=== PATIENT | male | born 1960 | race Caucasian/White ===

== ENCOUNTER 2020-08-02 02:30 | Inpatient (IN) | payer OTHER ==
[~2020-08-02] VITALS: Ht 172.7 cm; Wt 108.4 kg
[~2020-08-02 02:30] MED LIST: KEFLEX500 MG PO; MEDROL DOSEPAK4 MG PO; Motrin,Rufen800 MG PO
[2020-08-02 02:40] VITALS: BP 98/74
[2020-08-02 03:10] LABS: BASO % 0.2 % (0.0-1.0); EOS # 0.1 10*3/uL (0.0-0.4); EOS % 1.3 % (1.0-4.0); HEMATOCRIT 42.5 % (42.0-52.0); LYMPH # 2.5 10*3/uL (1.3-4.4); LYMPH % 23.6 % (27.0-41.0); MEAN CELL VOLUME 89.1 fl (80.0-94.0); MEAN CORPUSCULAR HGB CONC 33.6 g/dl (33.0-37.0); MEAN PLATELET VOLUME 9.2 fl (9.6-12.3); MONO # 0.9 10*3/uL (0.1-1.0); MONO % 8.1 % (3.0-9.0); NEUT % 66.4 % (47.0-73.0); PLATELET COUNT AUTOMATED 148 10*3/uL (130-400); RED BLOOD COUNT 4.77 10*6/uL (4.50-5.90); RED CELL DISTRI WIDTH 12.4 % (0-14.5); WHITE BLOOD COUNT 10.6 10*3/uL (4.8-10.8)
[2020-08-02 03:29] LABS: ALBUMIN 3.4 gm/dl (3.1-4.5); ALKALINE PHOSPHATASE 68 U/L (45-117); BUN 10 mg/dl (7-24); CHLORIDE 105 mmol/L (98-107); CREATININE 1.03 mg/dL (0.70-1.30); POTASSIUM 3.4 mmol/L (3.5-5.1); SGOT/AST 27 IU/L (3-35); SGPT/ALT 32 U/L (12-78); SODIUM 138 mmol/L (136-145); TOTAL PROTEIN 7.6 gm/dL (6.4-8.2)
[2020-08-02 06:02] LABS: THYROID STIM HORMONE (HS) 3.1 uIU/ml (0.358-4.75)
[2020-08-02 06:49] LABS: FERRITIN 373.2 ng/mL (22.0-322.0); VITAMIN D, 25-HYDROXY 18.7 ng/mL (30-100)
[2020-08-02 10:13] LABS: ABG BASE EXCESS -0.3 mmol/L (-2.0-2.0); ARTERIAL BLOOD GAS PH 7.417 (7.35-7.45)
[2020-08-02 10:45] VITALS: BP 108/86
[2020-08-02 12:00] VITALS: BP 109/84
[2020-08-02 16:00] VITALS: BP 107/78
== END 2020-08-03 03:56 | disposition expired | DRG 871 ==
LOC: ED → EDHOLD 04:35 → 4E 08:43 → ICCU 20:33 → 4E 08-03 03:56
PROVIDERS: Internal Medicine; Internal Medicine Critical Care Medicine; Student in an Organized Health Care Education/Training Program; ADMIT Emergency Medicine; ATTEND Emergency Medicine
PROC: 5A12012 Performance of Cardiac Output, Single, Manual (ICD-10-PCS; principal; 2020-08-02)
PROC: 0BH17EZ Insertion of Endotracheal Airway into Trachea, Via Natural or Artificial Opening (ICD-10-PCS; 2020-08-02)
PROC: 5A0935A Assistance with Respiratory Ventilation, Less than 24 Consecutive Hours, High Flow/Velocity Cannula (ICD-10-PCS; 2020-08-02)
PROC: XW033E5 Introduction of Remdesivir Anti-infective into Peripheral Vein, Percutaneous Approach, New Technology Group 5 (ICD-10-PCS; 2020-08-02)
DX: A41.89 Other specified sepsis (principal); I21.4 Non-ST elevation (NSTEMI) myocardial infarction; J96.01 Acute respiratory failure with hypoxia; U07.1 COVID-19; E44.0 Moderate protein-calorie malnutrition; Z20.828 Contact with and (suspected) exposure to other viral communicable diseases; B97.89 Other viral agents as the cause of diseases classified elsewhere; E87.6 Hypokalemia; I95.0 Idiopathic hypotension; E78.5 Hyperlipidemia, unspecified; E55.9 Vitamin D deficiency, unspecified; I46.9 Cardiac arrest, cause unspecified; R73.9 Hyperglycemia, unspecified; E66.9 Obesity, unspecified; R55 Syncope and collapse; G51.0 Bell's palsy; Z68.36 Body mass index [BMI] 36.0-36.9, adult